=== PATIENT | female | born 1940 | race Caucasian/White ===

== ENCOUNTER → 2019-06-19 | Outpatient (CLI) | payer OTHER ==
--- NOTE | 2019-06-19 12:27 | Diagnostic Imaging Report ---
INDICATION: Bilateral wrist pain. COMPARISON: None available. TECHNIQUE: Three views of each wrist were obtained for total of six views. FINDINGS: Normal osseous mineralization is present on both sides. No increased density within the lunate to suggest osteonecrosis on either side. No features of scaphoid fracture. No fracture elsewhere within either hand. Moderate degenerative changes are present at the left thumb CMC. No carpal boss on either side. No chondrocalcinosis. IMPRESSION: 1. Degenerative changes at the left thumb base. 2. No acute osseous abnormality on either side. Dictated by: Dictated on workstation # [id number]
== END ==
LOC: RAD FS 10:06
PROVIDERS: ATTEND Nurse Practitioner
DX: M19.032 Primary osteoarthritis, left wrist (principal)

== ENCOUNTER 2019-06-30 08:41 | Outpatient (CLI) | payer MEDICARE ==
[~2019-06-30] VITALS: Ht 160 cm; Wt 78.6 kg
[2019-06-30] MEDS ORDERED: OMEP40CA27 PO (11:41)
[2019-06-30] MEDS ORDERED: AMLO1CAP5 PO (11:41)
[2019-06-30] MEDS ORDERED: DULO20CA19 PO (11:41)
[2019-06-30] MEDS ORDERED: ATOR20TA66 PO (11:41)
[2019-06-30] MEDS ORDERED: POTA20TA8 PO (11:41)
[2019-06-30] MEDS ORDERED: METF-399 PO (11:41)
[2019-06-30] MEDS ORDERED: HYDR25TA4 PO (11:41)
[2019-06-30] MEDS ORDERED: ASPI-586 PO (11:41)
[2019-06-30] MEDS ORDERED: GABA-488 PO (11:41)
== END 2019-06-30 11:53 | disposition home or self-care (01) ==
LOC: PREOP 08:41
PROVIDERS: ATTEND Orthopaedic Surgery
DX: Z01.818 Encounter for other preprocedural examination (principal)

== ENCOUNTER 2019-07-02 08:50 | Day surgery (SDC) | payer MEDICARE, OTHER ==
--- NOTE | 2019-06-27 10:24 | HISTORY AND PHYSICAL ---
DATE OF SERVICE: DATE OF ADMISSION: 07/02/2019. This will be for outpatient surgery on 07/02/2019, for left carpal tunnel release and left cubital tunnel release. HISTORY OF PRESENT ILLNESS: The patient is a 78-year-old female with complaints of left hand pain and paresthesias. She reports a tingling in all 5 digits. She underwent an EMG nerve conduction study, which revealed evidence of carpal and cubital tunnel syndrome. She reports pain that keeps her up at night. She has had difficulty with activities of daily living as well. Due to functional impairment and failure to improve with conservative measures, the patient elected to proceed with surgical intervention. REVIEW OF SYSTEMS: No chest pain, no shortness of breath, no dysuria. PAST MEDICAL HISTORY: Degenerative disk disease of the C-spine and lumbar spine, right rotator cuff tear, hypertension, diabetes. PAST SURGICAL HISTORY: Cervical fusion, right rotator cuff repair, lumbar surgery. FAMILY HISTORY: Noncontributory. PRIMARY CARE PROVIDER: None, local. MEDICATIONS: Metformin, hydrochlorothiazide, potassium, aspirin, gabapentin, omeprazole, atorvastatin, , amlodipine. ALLERGIES: No known drug allergies. SOCIAL HISTORY: The patient denies alcohol, tobacco use. PHYSICAL EXAMINATION: GENERAL: The patient is well developed, well-nourished, in no acute distress. HEENT: Normocephalic, atraumatic. Pupils equal, round, reactive to light. Oropharynx is clear. NECK: Supple, no lymphadenopathy. LUNGS: Clear to auscultation bilaterally. HEART: Regular rate and rhythm. ABDOMEN: Soft, nontender, nondistended. EXTREMITIES: Left elbow demonstrates positive Tinel's at the cubital tunnel with positive elbow flexion test. She has a positive Phalen's maneuver on the left with positive Phalen's at the carpal tunnel. She has decreased sensation in ulnar and median distribution. IMPRESSION: 1. Left cubital tunnel syndrome. 2. Left carpal tunnel syndrome. PLAN: 1. Left cubital tunnel release. 2. Left carpal tunnel release. Risks, benefits, options, ramifications and recovery were discussed at length with the patient. She understands and wishes to proceed. Job ID: [id number] DocumentID: [id number] Dictated Date: 06/27/2019 09:05:00 Dog Beautician Date: 06/27/2019 10:23:44 Dictated By: SHEREEN BANKS MD
[~2019-07-02] VITALS: Ht 160 cm; Wt 78.6 kg
[2019-07-02] VITALS (8 sets, daily range): BP systolic 102–135; BP diastolic 54–77
[~2019-07-02 08:50] MED LIST: AMLO1CAP5 PO; ASPI-586 PO; ATOR20TA66 PO; DULO20CA19 PO; GABA-488 PO; HYDR25TA4 PO; METF-399 PO; OMEP40CA27 PO; POTA20TA8 PO
--- NOTE | 2019-07-02 09:27 | Progress Note-Pre Operative ---
Pre-Operative Progress Note H&P Reviewed The H&P was reviewed, patient examined and no changes noted. Date Seen by Provider: Jul 02, 2019 Time Seen by Provider: : Date H&P Reviewed: Jul 02, 2019 Time H&P Reviewed: : Pre-Operative Diagnosis: left carpal and cubital tunnel syndromes SHEREEN BANKS MD Jul 02, 2019 09:27
--- NOTE | 2019-07-02 09:28 | Progress Note-Post Operative ---
Post-Operative Progess Note Surgeon (s)/[employer] Law Clerk (s) Surgeon SHEREEN BANKS MD [employer] Law Clerk: Wilian Marinelli Pre-Operative Diagnosis left carpal and cubital tunnel syndromes Post-Operative Diagnosis left carpal and cubital tunnel syndromes Procedure & Operative Findings Date of Procedure 07/02/19 Procedure Performed/Findings left carpal and cubital tunnel releases Anesthesia Type GETA Estimated Blood Loss Estimated blood loss (mL): minimal Specimens/Packing Specimens Removed none Packing: none SHEREEN BANKS MD Jul 02, 2019 09:28
[2019-07-02] MEDS ORDERED: HYDROcodone/APAP 7.5 MG/325 MG (LORTAB, LORCET PLUS) TABLET PO PRN (09:30)
[2019-07-02] MEDS ORDERED: ceFAZolin INJECTION 1,000 MG in WATER (STERILE) FOR INJECTION 10 ML IV ONE (09:45)
[2019-07-02] MEDS: LACTATED RINGERS 1,000 ML IV PRN ×2 (09:47→12:49)
[2019-07-02 09:49] LABS: BUN/CREATININE RATIO 20; CALCIUM 9.5 MG/DL (8.5-10.1); CARBON DIOXIDE 25 MMOL/L (21-32); CHLORIDE 99 MMOL/L (98-107); CREATININE SERUM 0.89 MG/DL (0.60-1.30); GFR ESTIMATED > 60; GLUCOSE 162 MG/DL (70-105); SODIUM 138 MMOL/L (135-145)
[2019-07-02] MEDS ORDERED: LIDOCAINE 1% INJ 20 ML 20 ML VIAL ONE (10:25)
[2019-07-02] MEDS ORDERED: BUPIVACAINE 0.5% 30 ML (SENSORCAINE) VIAL ONE (10:25)
[2019-07-02] MEDS ORDERED: SEVOFLURANE (ULTANE) 15 ML INHAL SOLN ONE ×2 (12:56→13:43)
[2019-07-02] MEDS ORDERED: ONDANSETRON 4 MG/2 ML (SDV) Z0FRAN ONE (12:56)
[2019-07-02] MEDS ORDERED: fentaNYL INJECTION 100 MCG/2 ML AMP ONE (12:56)
[2019-07-02] MEDS ORDERED: LIDOCAINE PF 2% 5 ML (XYLOCAINE) VIAL ONE (12:56)
[2019-07-02] MEDS ORDERED: proPOfol 200 MG/20 ML (DIPRIVAN) VIAL IV ONE (12:56)
--- NOTE | 2019-07-02 13:56 | Anesthesia-General Post-Op ---
General Patient Condition Mental Status/LOC: Same as Preop Cardiovascular: Satisfactory Nausea/Vomiting: Absent Respiratory: Satisfactory Pain: Controlled Complications: Absent Post Op Complications Complications None Follow Up Care/Instructions Patient Instructions None needed. Anesthesia/Patient Condition Patient Condition Patient is doing well, no complaints, stable vital signs, no apparent adverse anesthesia problems. No complications reported per nursing. RODRIGO PULLIAM CRNA Jul 02, 2019 13:56
[2019-07-02] MEDS ORDERED: ONDANSETRON 4 MG/2 ML (SDV) Z0FRAN IVP PRN (14:00)
[2019-07-02] MEDS ORDERED: fentaNYL INJECTION 100 MCG/2 ML AMP IVP ONE (14:00)
[2019-07-02] MEDS ORDERED: morphine INJ 10 MG/ML 1ML (SYR OR VIAL) IVP ONE (14:00)
[2019-07-02] MEDS ORDERED: HYDR-34 PO (14:20)
--- NOTE | 2019-07-02 18:07 | OPERATIVE REPORT ---
DATE OF SERVICE: 07/02/2019 PREOPERATIVE DIAGNOSES: 1. Left cubital tunnel syndrome. 2. Left carpal tunnel syndrome. POSTOPERATIVE DIAGNOSES: 1. Left cubital tunnel syndrome. 2. Left carpal tunnel syndrome. PROCEDURES: 1. Left cubital tunnel release. 2. Left carpal tunnel release. SURGEON: Hi Banks MD MANAGEMENT MANAGER: Wilian Marinelli, who assisted throughout the procedure and closed the incisions. ANESTHESIA: General endotracheal by Rachel Ward CRNA. TOURNIQUET TIME: 7 minutes at 250 mmHg. ESTIMATED BLOOD LOSS: Minimal. DRAINS: None. COMPLICATIONS: None. POSTOPERATIVE PLAN: Routine protocol. The patient was transferred to the recovery room awake and stable condition. STATEMENT OF MEDICAL NECESSITY: The patient is a 78-year-old female with complaints of left hand pain and paresthesias. She underwent an EMG nerve conduction study, which showed evidence of left carpal and cubital tunnel syndromes. She had undergone treatment with anti-inflammatories and rest without relief. Due to functional impairment and failure to improve with conservative measures, the patient elected to proceed with surgical intervention. DESCRIPTION OF PROCEDURE: After risks and benefits of procedure were discussed and questions were answered, an informed consent was signed and placed on chart, the operative site was confirmed in the preoperative holding area initialed by the surgeon. The patient was then transferred to the operating room. After adequate levels of general endotracheal anesthetic were obtained, a timeout was called, confirming the operative sites. Left upper extremity was prepped and draped in the usual sterile fashion with arm elevated, tourniquet inflated to 250 mmHg. An L-shaped incision was made posterior to the medial epicondyle. The underlying soft tissues were carefully dissected exposing the ulnar nerve approximately 9 cm proximally. This was dissected free into the cubital tunnel and into the flexor/pronator mass. The nerve was carefully protected throughout the procedure and intact at the conclusion of the procedure. The attention was then turned to the carpal tunnel. Incision was made in line with radial border of the ring finger over the transverse carpal ligament. The underlying soft tissues were carefully dissected. The transverse carpal ligament was identified, sharply incised by pushing through with the scalpel blade. The median nerve was identified and carefully protected throughout the procedure. The transverse carpal ligament was dissected above and below with dissection scissors proximally and then opened while carefully protecting the median nerve. The median nerve was intact at the conclusion of the procedure. The tourniquet was deflated for a total tourniquet time of 7 minutes. Pressure was used for hemostasis. Both wounds were copiously irrigated and the subcutaneous layer at the elbow incision was closed with 4-0 Vicryl in simple interrupted fashion. Both skin incisions were closed with 4-0 nylon in a running alternating horizontal mattress fashion. Incisions were infiltrated with plain Marcaine and soft dressing was applied and a wrist brace, and the patient was transferred to the recovery room awake and in stable condition. Job ID: [id number] DocumentID: [id number] Dictated Date: 07/02/2019 13:42:41 Mix Mill Tender Date: 07/02/2019 18:07:27 Dictated By: HI BANKS MD
--- OUTSIDE RECORDS SUMMARY | 2019-07-04 04:52 | XMS REPORT | Continuity of Care Document ---
Author Organization Unknown Address Unknown Phone Unavailable Allergies Active Description Code Type Severity Reaction Onset Reported/Identified Relationship to Patient Clinical Status Yes No Known Drug Allergies [id number] Drug Allergy Unknown N/A 06/30/2019 Medications There is no data. Problems Date Dx Coded Attending Type Code Diagnosis Diagnosed By 06/25/2019 JEAN ANGELES Ot M19.032 PRIMARY OSTEOARTHRITIS, LEFT WRIST 06/30/2019 JOCELYN CLEMONS, SHEREEN Kc Ot Z01.818 ENCOUNTER FOR OTHER PREPROCEDURAL EXAMIN 07/01/2019 SHEREEN BANKS MD, Ot Z01.818 ENCOUNTER FOR OTHER PREPROCEDURAL EXAMIN 07/02/2019 JEAN ANGELES Ot M19.032 PRIMARY OSTEOARTHRITIS, LEFT WRIST Procedures There is no data. Results Test Result Range Whole blood basic metabolic panel - 06/21 05/12 09:15 Serum or plasma sodium measurement (moles/volume) 138 mmol/L 135-145 Serum or plasma potassium measurement (moles/volume) 4.0 mmol/L 3.6-5.0 Serum or plasma chloride measurement (moles/volume) 99 mmol/L 98-107 Carbon dioxide 25 mmol/L 21-32 Serum or plasma anion gap determination (moles/volume) 14 mmol/L 5-14 Serum or plasma urea nitrogen measurement (mass/volume ) 18 mg/dL 7-18 Serum or plasma creatinine measurement (mass/volume) 0.89 mg/dL 0.60-1.30 Serum or plasma urea nitrogen/creatinine mass ratio 20 NRG Serum or plasma creatinine measurement w ith calculation of estimated glomerular filtration rate > NRG Serum or plasma glucose measurement (mass/volume) 162 mg/dL 70-105 Serum or plasma calcium measurement (mass/volume) 9.5 mg/dL 8.5-10.1 Methicillin resistant Staphylococcus aur eus (MRSA) screening culture - 07/02/19 09:15 Methicillin resistant Staphylococcus aureus (MRSA) scr eening culture NEG NRG Encounters ACCT No. Visit Date/Time Discharge Status Pt. Type Provider Facility Loc./Unit Complaint [id number] 07/02/2019 08:50:00 15:20:00 DIS Outpatient SHEREEN BANKS MD [facility] LEFT CARPAL/CUBITAL PAM RON SYNDROME [id number] 06/30/2019 08:41:00 11:53:00 DIS Outpatient SHEREEN BANKS MD [facility] PREOP LEFT CARPAL/CUBITAL PAM RON SYNDROME [id number] 06/19/2019 10:06:00 23:59:59 CLS Outpatient JEAN ANGELES [facility] RAD FS M25.531
== END 2019-07-02 15:20 | disposition home or self-care (01) ==
LOC: SDC 08:50
PROVIDERS: ATTEND Orthopaedic Surgery
DX: G56.02 Carpal tunnel syndrome, left upper limb (principal); G56.22 Lesion of ulnar nerve, left upper limb; M51.36 Other intervertebral disc degeneration, lumbar region; M50.30 Other cervical disc degeneration, unspecified cervical region; E11.9 Type 2 diabetes mellitus without complications; I10 Essential (primary) hypertension; K21.9 Gastro-esophageal reflux disease without esophagitis; Z79.84 Long term (current) use of oral hypoglycemic drugs; Z79.82 Long term (current) use of aspirin; Z79.899 Other long term (current) drug therapy
CPT/HCPCS: 36415; 80048; 87081; 93005